=== PATIENT | female | born 1990 ===

== ENCOUNTER 2020-09-02 21:00 | Inpatient (IN) ==
[2020-09-02] MEDS ORDERED: 0.9 % Sodium Chloride 1,000 ML IV ONE (22:11)
[2020-09-02] MEDS ORDERED: Ondansetron 4 MG/2 ML VIAL IVP ONE (22:20)
[2020-09-02 22:25] LABS: Bacteria,Urine Many per hpf (None-Few); Bilirubin,Urine Negative (Negative); Blood,Urine Moderate (Negative); Clarity,Urine Turbid (Clear); Color,Urine Yellow (Yellow); Glucose,Urine (UA) Normal (Normal); Ketones,Urine 60 mg/dL (Negative); Leukocyte Esterase,Urine Small (Negative); Mucus,Urine Few per lpf (None-Few); Nitrite,Urine Positive (Negative); Protein,Urine 200 mg/dL (Neg-Trace); RBC,Urine 50-100 per hpf (0-3); Renal Epithelial Cells,Urine Few per hpf (None-Few); Specific Gravity,Urine 1.025 (1.010-1.025); Squamous Epithelial Cell,Urine Few per hpf (None-Few); Transitional Epi Cells,Urine Few per hpf (None-Few); WBC,Urine 30-50 per hpf (0-3)
[2020-09-02 22:31] LABS: Basophils % 0.2 %; Hematocrit 32.6 % (35.3-44.9); Hemoglobin 11.3 g/dL (11.5-15.4); Immature Granulocytes % 0.6 % (0-4); Lymphocytes # 0.9 K/mcL (0.6-4.6); Lymphocytes % 6.4 %; Mean Corpuscular HGB Conc 34.7 g/dL (31.6-35.5); Mean Corpuscular Hemoglobin 29.4 pg (28.0-33.3); Mean Corpuscular Volume 84.7 fL (83.0-100.0); Mean Platelet Volume 9.2 fL (9.4-12.4); Monocytes # 0.9 K/mcL (0.0-1.3); Monocytes % 6.9 %; Neutrophils # 11.5 K/mcL (1.6-8.9); Platelet Count 229 K/mcL (140-400); Red Blood Count 3.85 M/mcL (3.82-4.97); Red Cell Distribution Width 12.1 % (11.5-14.5); Segmented Neutrophils % 85.9 %; White Blood Count 13.4 K/mcL (4.3-11.1)
[2020-09-02] MEDS ORDERED: Ondansetron 4 MG/2 ML VIAL ONE (22:32)
[2020-09-02] MEDS ORDERED: 0.9 % Sodium Chloride 1,000 ML ONE (22:32)
[2020-09-02 22:37] LABS: Amphetamine Screen,Urine Negative ng/mL (Cutoff=1000); Barbiturate Screen,Urine Negative ng/mL (Cutoff=200); Benzodiazepines Screen,Urine Negative ng/mL (Cutoff=200); Cannabinoid Screen,Urine Positive ng/mL (Cutoff = 50); Cocaine Screen,Urine Negative ng/mL (Cutoff= 300); Opiate Screen,Urine Negative ng/mL (Cutoff=300); Phencyclidine Screen,Urine Negative ng/mL (Cutoff=25)
[2020-09-02] MEDS ORDERED: cefTRIAXone 1,000 MG in 0.9 % Sodium Chloride Mini Bag 100 ML IVPB ONE (22:41)
[2020-09-02] MEDS ORDERED: 0.9 % Sodium Chloride Mini Bag 100 ML ONE (22:47)
[2020-09-02] MEDS ORDERED: CefTRIAXone 1,000 MG VIAL ONE (22:47)
[2020-09-02 22:52] LABS: Alanine Aminotransferase 19 Units/L (7-52); Albumin 4.3 g/dL (3.5-5.7); Albumin/Globulin Ratio 1.3 (1.1-2.2); Alkaline Phosphatase 77 Units/L (34-104); Aspartate Amino Transferase 16 Units/L (13-39); BUN/Creatinine Ratio 13 (6-26); Bilirubin,Direct 0.2 mg/dL (0.0-0.2); Bilirubin,Indirect 0.9 mg/dL (0.0-1.0); Bilirubin,Total 1.1 mg/dL (0.3-1.0); Blood Urea Nitrogen 13 mg/dL (6-20); Calcium 8.9 mg/dL (8.6-10.3); Carbon Dioxide 24 mEq/L (23-29); Chloride 94 mEq/L (98-107); Globulin 3.3 g/dL (2.4-3.5); Glucose 125 mg/dL (70-105); Lipase < 3 Units/L (11-82); Osmolality,Calculated 278 (280-300); Potassium 3.5 mEq/L (3.5-5.1); Sodium 133 mEq/L (136-145); Total Protein 7.6 g/dL (6.4-8.9); eGFR For African Americans > 60 (> 60); eGFR For Non-African Americans > 60 (> 60)
[2020-09-03] MEDS ORDERED: Isovue-370 500 ML BOTTLE IVP ONE (00:39)
[2020-09-03] MEDS ORDERED: 0.9 % Sodium Chloride 1,000 ML IV ONE (00:52)
[2020-09-03] MEDS ORDERED: Ketorolac 30 MG/ML VIAL IVP ONE (00:52)
[2020-09-03] MEDS ORDERED: Naloxone 0.4 MG/ML INJ IVP PRN (05:25)
[2020-09-03] MEDS: Acetaminophen 325 MG TABLET PO PRN ×2 (06:25→12:54)
[2020-09-03] MEDS: *HR* Heparin 5,000 UNIT/ML VIAL SQ SCH ×2 (06:25→16:21)
[2020-09-03] MEDS: 0.9 % Sodium Chloride 1,000 ML IVC SCH ×2 (06:25→19:17)
[2020-09-03] MEDS: Ondansetron 4 MG/2 ML VIAL IVP PRN ×3 (06:25→19:22)
[2020-09-03] MEDS: cefTRIAXone 1,000 MG in Water for inj. (sterile) 10 ML IVP SCH (08:43)
[2020-09-03] MEDS ORDERED: Ketorolac 15 MG/ML VIAL IVP ONE (16:15)
[2020-09-03] MEDS: *HR* Buprenorphine HCl 2 MG SUBLINGUAL TABLET SL SCH ×2 (18:32→20:54)
[2020-09-03] MEDS ORDERED: Metoclopramide 10 MG/2 ML VIAL IVP ONE (22:40)
[2020-09-04] MEDS: Acetaminophen 325 MG TABLET PO PRN (02:16)
[2020-09-04] MEDS: Ondansetron 4 MG/2 ML VIAL IVP PRN ×3 (02:16→20:33)
[2020-09-04] MEDS ORDERED: Prochlorperazine 10 MG/2 ML VIAL IVP ONE (02:53)
[2020-09-04] MEDS: 0.9 % Sodium Chloride 1,000 ML IVC SCH ×2 (05:25→17:38)
[2020-09-04] MEDS: *HR* Heparin 5,000 UNIT/ML VIAL SQ SCH ×2 (05:26→17:37)
[2020-09-04 06:27] LABS: Basophils % 0.3 %; Eosinophils # 0.1 K/mcL (0.0-0.6); Eosinophils % 0.6 %; Hematocrit 29.9 % (35.3-44.9); Hemoglobin 10.2 g/dL (11.5-15.4); Immature Granulocytes % 0.8 % (0-4); Lymphocytes # 1.9 K/mcL (0.6-4.6); Lymphocytes % 13.5 %; Mean Corpuscular HGB Conc 34.1 g/dL (31.6-35.5); Mean Corpuscular Hemoglobin 29.1 pg (28.0-33.3); Mean Corpuscular Volume 85.4 fL (83.0-100.0); Monocytes # 1.8 K/mcL (0.0-1.3); Monocytes % 12.7 %; Platelet Count 213 K/mcL (140-400); Red Cell Distribution Width 12.2 % (11.5-14.5); Segmented Neutrophils % 72.1 %; White Blood Count 13.8 K/mcL (4.3-11.1)
[2020-09-04] MEDS: *HR* Buprenorphine HCl 2 MG SUBLINGUAL TABLET SL SCH ×4 (08:35→20:38)
[2020-09-04] MEDS: cefTRIAXone 1,000 MG in Water for inj. (sterile) 10 ML IVP SCH (08:35)
[2020-09-04] MEDS ORDERED: Fluconazole 150 MG TABLET PO ONE (09:00)
[2020-09-04 12:37] LABS: BUN/Creatinine Ratio 13 (6-26); Blood Urea Nitrogen 9 mg/dL (6-20); Calcium 8.6 mg/dL (8.6-10.3); Carbon Dioxide 18 mEq/L (23-29); Chloride 107 mEq/L (98-107); Glucose 97 mg/dL (70-105); Magnesium 2.3 mg/dL (1.6-2.6); Osmolality,Calculated 291 (280-300); Potassium 5.2 mEq/L (3.5-5.1); Sodium 141 mEq/L (136-145); eGFR For African Americans > 60 (> 60); eGFR For Non-African Americans > 60 (> 60)
[2020-09-04] MEDS ORDERED: Ibuprofen 800 MG TABLET PO PRN (17:40)
[2020-09-04] MEDS: Ketorolac 15 MG/ML VIAL IVP PRN (18:18)
[2020-09-04] MEDS: Venlafaxine XR (24 HR) 75 MG CAP.ER.24H PO SCH (18:18)
[2020-09-04] MEDS: valACYclovir 500 MG TABLET PO SCH (18:18)
[2020-09-04] MEDS ORDERED: QUEtiapine Fumarate 25 MG TABLET PO SCH (21:00)
[2020-09-05] MEDS: 0.9 % Sodium Chloride 1,000 ML IVC SCH ×3 (01:56→05:24)
[2020-09-05] MEDS: Ketorolac 15 MG/ML VIAL IVP PRN (01:57)
[2020-09-05] MEDS: *HR* Heparin 5,000 UNIT/ML VIAL SQ SCH (05:18)
[2020-09-05 07:38] VITALS: BP 143/85
[2020-09-05 07:48] LABS: Hematocrit 27.4 % (35.3-44.9); Hemoglobin 9.3 g/dL (11.5-15.4); Mean Corpuscular HGB Conc 33.9 g/dL (31.6-35.5); Mean Corpuscular Hemoglobin 29.1 pg (28.0-33.3); Mean Corpuscular Volume 85.6 fL (83.0-100.0); Platelet Count 233 K/mcL (140-400); Red Cell Distribution Width 12.1 % (11.5-14.5)
[2020-09-05 07:50] LABS: White Blood Count 6.4 K/mcL (4.3-11.1)
[2020-09-05 08:05] LABS: BUN/Creatinine Ratio 17 (6-26); Blood Urea Nitrogen 10 mg/dL (6-20); Calcium 8.2 mg/dL (8.6-10.3); Carbon Dioxide 23 mEq/L (23-29); Chloride 109 mEq/L (98-107); Glucose 86 mg/dL (70-105); Osmolality,Calculated 286 (280-300); Potassium 3.3 mEq/L (3.5-5.1); Sodium 139 mEq/L (136-145); eGFR For African Americans > 60 (> 60); eGFR For Non-African Americans > 60 (> 60)
[2020-09-05] MEDS ORDERED: Patient Taking Own Medication 1 EACH PO SCH (09:00)
[2020-09-05] MEDS: cefTRIAXone 1,000 MG in Water for inj. (sterile) 10 ML IVP SCH (10:12)
[2020-09-05] MEDS: *HR* Buprenorphine HCl 2 MG SUBLINGUAL TABLET SL SCH (10:13)
[2020-09-05] MEDS: Venlafaxine XR (24 HR) 75 MG CAP.ER.24H PO SCH (10:13)
[2020-09-05] MEDS: valACYclovir 500 MG TABLET PO SCH (10:13)
[2020-09-05] MEDS: Ondansetron 4 MG/2 ML VIAL IVP PRN (10:19)
== END 2020-09-05 11:49 | disposition home or self-care (01) | DRG 720 ==
LOC: CDU 21:00 → EMEROOARM 21:00 → SUATTDRO 09-03 04:53 → CDU 09-03 05:33 → 3ANU 09-04 16:57
PROVIDERS: ADMIT Student in an Organized Health Care Education/Training Program; ATTEND Internal Medicine